=== PATIENT | female | born 1935 | race Two or more races ===

== ENCOUNTER 2016-06-25 15:48 | Emergency (ER) | payer OTHER ==
[~2016-06-25] VITALS: Ht 154.9 cm; Wt 51.7 kg
[2016-06-25 16:02] VITALS: BP 157/74
[2016-06-25] MEDS ORDERED: cefTRIAXone 1 GM in NS 55 ML IVPB ONE (16:15)
[2016-06-25] MEDS ORDERED: OMEPRAZOLE20 M2 ORAL (16:22)
[2016-06-25] MEDS ORDERED: METOPROLOL TART25 MG ORAL (16:22)
[2016-06-25] MEDS ORDERED: GLIPIZIDE5 MG ORAL (16:22)
[2016-06-25] MEDS ORDERED: METFORMIN HCL1000 M1 ORAL (16:22)
[2016-06-25] MEDS ORDERED: HYDROCHLOROTHIA25 MG ORAL (16:22)
[2016-06-25] MEDS ORDERED: LOSARTAN POTASS50 MG ORAL (16:24)
[2016-06-25] MEDS ORDERED: Hydrocortisone 2.5% TOPIC (16:24)
[2016-06-25] MEDS ORDERED: JANUVIA25 MG ORAL (16:24)
--- NOTE | 2016-06-25 16:46 | Emergency Room Report ---
History of Present Illness General Chief Complaint: Skin Rash/Abscess Source: Patient Present Illness HPI Patient presents with complaints of redness to her right foot Initially about 7 days ago patient had noticed increased redness Was treated with a steroid cream As the area worsens patient saw her primary physician again was sent to the ER patient has a history of diabetes has had previous varicose vein surgery on the right foot At this time denies any obvious fevers however she does have some chills denies any vomiting or diarrhea denies any chest pain or shortness of breath Patient also noticed a rash involving the left leg in the knee area Allergies: Coded Allergies: No Known Allergies (Unverified , 06/25/16) Patient History Past Medical History: see triage record Pertinent Family History: none Reviewed Nursing Documentation: PMH: Agreed, PSxH: Agreed Nursing Documentation-PMH Past Medical History: No History, Except For Hx Hypertension: Yes Hx Diabetes: Yes Review of Systems All Other Systems: negative except mentioned in HPI Physical Exam Vital Signs Date Time Temp Pulse Resp B/P Pulse Ox O2 Delivery O2 Flow Rate FiO2 06/25/16 15:52 98.2 82 14 157/74 97 Room Air Sp02 EP Interpretation: reviewed, normal General Appearance: well appearing, no apparent distress Head: normocephalic, atraumatic Eyes: bilateral eye EOMI, bilateral eye PERRL ENT: hearing grossly normal, normal pharynx, TMs + canals normal, uvula midline Neck: full range of motion, supple, no meningismus, no bony tend Respiratory: lungs clear, normal breath sounds, no rhonchi, no respiratory distress, no retraction, no accessory muscle use Cardiovascular #1: normal peripheral pulses, regular rate, rhythm, no edema, no gallop, no JVD, no murmur Gastrointestinal: normal bowel sounds, non tender, soft, no mass, no organomegaly, non-distended, no guarding, no hernia, no pulsatile mass, no rebound Genitourinary: no CVA tenderness Musculoskeletal: normal inspection Neurologic: oriented x3, responsive, psychiatric social worker III-XII nml as tested, motor strength/ tone normal, sensory intact Psychiatric: mood/affect normal Skin: other - Cellulitic findings of the right ankle, involves the lateral malleolus there, and dorsal aspect, there is evidence of previous surgery on the ankle, patient reports that it was varicose vein surgery, there is also some erythematous lesions patchy involving the left lower leg Lymphatic: normal inspection, no adenopathy Medical Decision Making Diagnostic Impression: Primary Impression: Cellulitis in diabetic foot ER Course The appearance of the patient's foot is concerning Given her diabetic state and the erythema Septic workup was initiated Patient's lactic acid was elevated along with a glucose Patient is provided with broad-spectrum antibiotics And at this time requires admission Given the patient's insurance she was set for transfer Labs Test 06/25/16 16:52 06/25/16 19:43 White Blood Count 8.5 K/UL (4.8-10.8) Red Blood Count 4.08 M/UL (4.20-5.40) Hemoglobin 13.3 G/DL (12.0-16.0) Hematocrit 39.3 % (37.0-47.0) Mean Corpuscular Volume 96 FL (80-99) Mean Corpuscular Hemoglobin 32.5 PG (27.0-31.0) Mean Corpuscular Hemoglobin Concent 33.8 G/DL (32.0-36.0) Red Cell Distribution Width 11.6 % (11.6-14.8) Platelet Count 230 K/UL (150-450) Mean Platelet Volume 8.9 FL (6.5-10.1) Neutrophils (%) (Auto) 73.3 % (45.0-75.0) Lymphocytes (%) (Auto) 19.7 % (20.0-45.0) Monocytes (%) (Auto) 4.7 % (1.0-10.0) Eosinophils (%) (Auto) 0.9 % (0.0-3.0) Basophils (%) (Auto) 1.4 % (0.0-2.0) Sodium Level 137 mEQ/L (135-145) Potassium Level 4.7 mEQ/L (3.4-4.9) Chloride Level 97 mEQ/L (98-107) Carbon Dioxide Level 21 mEQ/L (20-30) Anion Gap 19 (5-15) Blood Urea Nitrogen 38 mg/dL (7-23) Creatinine 1.3 mg/dL (0.5-0.9) Estimat Glomerular Filtration Rate mL/min (>60) Glucose Level 315 mg/dL (74-106) Lactic Acid Level 2.30 mmol/L (0.66-2.22) 2.70 mmol/L (0.66-2.22) Calcium Level 9.5 mg/dL (8.6-10.2) Total Bilirubin 0.3 mg/dL (0.0-1.2) Aspartate Amino Transf (AST/SGOT) 26 U/L (5-40) Alanine Aminotransferase (ALT/SGPT) 11 U/L (3-33) Alkaline Phosphatase 148 U/L (35-104) Total Creatine Kinase 46 U/L (26-140) Creatine Kinase MB 3.0 ng/mL (< 3.8) Creatine Kinase MB Relative Index 6.5 Total Protein 7.3 g/dL (6.6-8.7) Albumin 3.7 g/dL (3.5-5.2) Globulin 3.6 g/dL Albumin/Globulin Ratio 1.0 (1.0-2.7) Rhythm Strip Diag. Results EP Interpretation: yes Rate: 77 Rhythm: NSR, no PVC's, no ectopy Other X-Ray Diagnostic Results Other X-Ray Diagnostic Results : EP Interpretation: Yes Findings: no dislocation, other - Soft tissue swelling, evidence of a avulsion fracture appears old no obvious foreign body Number of Views: 3 - Right ankle Last Vital Signs Date Time Temp Pulse Resp B/P Pulse Ox O2 Delivery O2 Flow Rate FiO2 06/25/16 16:02 98.2 14 157/74 97 Room Air 06/25/16 15:52 82 Status: improved Disposition: [facility] Condition: Improved EVARISTO CASTELAN D.O. Jun 25, 2016 16:46
[2016-06-25 17:33] LABS: BASOPHILS % (AUTO) 1.4 % (0.0-2.0); EOSINOPHILS % (AUTO) 0.9 % (0.0-3.0); LYMPHOCYTES % (AUTO) 19.7 % (20.0-45.0); MEAN CORPUSCULAR HEMOGLOBIN 32.5 PG (27.0-31.0); MEAN CORPUSCULAR HGB CONC 33.8 G/DL (32.0-36.0); MEAN CORPUSCULAR VOLUME 96 FL (80-99); MEAN PLATELET VOLUME 8.9 FL (6.5-10.1); MONOCYTES % (AUTO) 4.7 % (1.0-10.0); NEUTROPHILS % (AUTO) 73.3 % (45.0-75.0); PLATELET COUNT 230 K/UL (150-450); RED BLOOD COUNT 4.08 M/UL (4.20-5.40); RED CELL DISTRIBUTION WIDTH 11.6 % (11.6-14.8); WHITE BLOOD COUNT 8.5 K/UL (4.8-10.8)
[2016-06-25 17:43] LABS: ALANINE AMINOTRANSFERASE 11 U/L (3-33); ANION GAP 19 (5-15); ASPARTATE AMINO TRANSFERASE 26 U/L (5-40); CALCIUM 9.5 mg/dL (8.6-10.2); CARBON DIOXIDE 21 mEQ/L (20-30); CHLORIDE 97 mEQ/L (98-107); CREATININE 1.3 mg/dL (0.5-0.9); HEMOLYSIS 215; SODIUM 137 mEQ/L (135-145); TOTAL PROTEIN 7.3 g/dL (6.6-8.7)
[2016-06-25 17:44] LABS: REFLEX LACTIC ACID YES OR NO YES
[2016-06-25 17:58] LABS: POTASSIUM 4.7 mEQ/L (3.4-4.9)
[2016-06-25 18:41] VITALS: BP 152/66
[2016-06-25 21:40] VITALS: BP 144/89
[2016-06-25 23:38] VITALS: BP 143/69
[2016-06-26 02:51] VITALS: BP 167/82
[2016-06-26 02:55] VITALS: BP 167/82
--- NOTE | 2016-06-26 10:12 | Diagnostic Imaging Report ---
Indications: Right ankle pain Technique: 3 views right ankle. Findings: Comparison: None Lateral soft tissues are swollen. Small calcific/ossific densities reside adjacent to the tip of the medial malleolus. No additional fracture, dislocation, joint space widening or lytic destruction, periosteal reaction , soft tissue gas or foreign body, or other acute changes are identified. Amorphous soft tissue calcifications medial aspect distal leg. IMPRESSION: Lateral soft tissue swelling, nonspecific. If in the setting of acute trauma, consider ATFL sprain Suggestion of small avulsion fractures adjacent to medial malleolar tip, probably but not definitely old No other evidence of acute abnormality Nonspecific soft tissue calcifications distal leg, likely dystrophic.
== END 2016-06-26 02:55 | disposition short-term general hospital (02) ==
LOC: EMR 16:50
DX: L03.115 Cellulitis of right lower limb (principal); E11.628 Type 2 diabetes mellitus with other skin complications; I10 Essential (primary) hypertension
CPT/HCPCS: 36415; 73610; 80053; 82550; 82553; 83605; 85025; 87040; 96374; 99284; J0696